=== PATIENT | female | born 1970 | race Caucasian/White ===

== ENCOUNTER 2024-03-19 20:21 | Emergency (ER) | payer OTHER, SELFPAY ==
--- NOTE | 2024-03-19 | ECG_ITS ---
Test Reason : CHEST PAIN Blood Pressure : / mmHG Vent. Rate : 088 BPM Atrial Rate : 088 BPM P-R Int : 206 ms QRS Dur : 086 ms QT Int : 396 ms P-R-T Axes : 020 -26 012 degrees QTc Int : 479 ms Normal sinus rhythm Low voltage QRS Borderline ECG No previous ECGs available Referred By: Generic ED Physician Electronically Signed By:Phong Pugh
--- NOTE | ~2024-03-19 | CT_ITS ---
EXAMINATION: CT ABDOMEN AND PELVIS WITH CONTRAST CLINICAL INFORMATION: Upper abdominal pain and tenderness with mildly elevated alkaline phosphatase and elevated lipase COMPARISON: Chest radiograph 03/19/2024 TECHNIQUE: Multidetector volumetric images were obtained from the superior aspect of the liver through the pubic symphysis following administration 85 mL of Omnipaque 350 intravenous contrast. Sagittal and coronal reformatted images were obtained on the technologist's workstation. Oral contrast: No This CT examination was performed using dose optimization techniques as appropriate, variously including the following: *Automated exposure control *Adjustment of mA and/or kV according to patient size (this includes techniques or standardized protocols for targeted exams where dose is matched to indication/reason for exam; i.e. extremities or head) *Use of iterative reconstruction technique DLP: 794 mGy-cm FINDINGS: LUNG BASES: The visualized lung bases are unremarkable. LIVER, GALLBLADDER, AND BILIARY TREE: The liver is enlarged at 20.6 cm in greatest cephalocaudad dimension with decreased attenuation consistent with hepatic steatosis. Some minimal fatty sparing is present adjacent to the gallbladder. No concerning focal hepatic lesion or biliary ductal dilatation is present. The gallbladder is contracted but otherwise unremarkable with no evidence of radiopaque gallstones, gallbladder wall thickening, or obvious pericholecystic inflammatory changes. PANCREAS: No evidence of pancreatitis. No masses, pancreatic inflammatory change, calcifications or ductal dilatation. SPLEEN: Spleen is enlarged at 13.5 cm. ADRENAL GLANDS: Unremarkable. KIDNEYS AND URETERS: The kidneys are normal in size, shape, and attenuation. No hydronephrosis, hydroureter, or calculi seen. No perinephric stranding. A benign 0.8 cm right-sided Bosniak class I renal cyst is noted which requires no additional imaging or follow up. No solid renal masses are seen. BLADDER: Unremarkable. GASTROINTESTINAL TRACT: The small and large bowel are unremarkable. The appendix is not seen but there is no evidence of appendicitis evidence of appendicitis. ABDOMINAL WALL: No significant hernia is appreciated. LYMPH NODES: Normal. VASCULAR: Unremarkable. PELVIC VISCERA: The uterus and adnexa are unremarkable. OSSEOUS STRUCTURES: Unremarkable. CT/CT abdomen pelvis w IV con IMPRESSION: 1. A cause for the patient's upper abdominal pain and tenderness has not been found. 2. Incidental note made of an enlarged fatty liver and mild splenomegaly. Fleischner guidelines were followed.
--- NOTE | ~2024-03-19 | XR_ITS ---
EXAMINATION: XR CHEST CLINICAL INFORMATION: Chest pain. Shortness of breath. COMPARISON: None available. TECHNIQUE: Frontal view of the chest was obtained. FINDINGS: Hypoinflation of the lungs. The lungs are clear. The cardiomediastinal silhouette is normal in size. There is no pleural effusion or pneumothorax. No acute osseous abnormality. XR/XR chest 1V IMPRESSION: No acute cardiopulmonary findings.
[2024-03-19 20:23] VITALS: BP 117/68; PULSE 87; O2SAT 98
[2024-03-19 20:29] VITALS: BP 115/61; PULSE 87; RESP 16; TEMP 36.9; O2SAT 95; BMI 43.3
--- NOTE | 2024-03-19 20:53 | PC.NURSE ---
Patient DEJON from [facility] on [address], already in hospital attire, only brought book with her and glasses, 1:[address] for patient safety.
[2024-03-19 21:04] LABS: MANUAL DIFF FLAG NO
[2024-03-19 21:07] LABS: Basophils Percent Auto 0.3 % (0-2); Eosinophils Absolute Auto 0.1 X10*3/uL (0.0-0.4); Eosinophils Percent Auto 1.4 % (0-4); Hematocrit 37.7 % (37.0-47.0); Hemoglobin 11.4 g/dl (12.0-16.0); Imm Gran Abs Auto 0.06 X10*3/uL (0.00-0.03); Imm Gran Pct Auto 0.6 % (0.0-0.4); Lymphocytes Percent Auto 20.5 % (20-40); Mean Corpuscular HGB Conc 30.2 g/dl (31.0-35.0); Mean Corpuscular Hemoglobin 24.8 pg (27.0-33.0); Monocytes Absolute Auto 0.8 X10*3/uL (0.1-1.2); Monocytes Percent Auto 7.8 % (2-11); Neutrophils Absolute Auto 6.7 x10*3/uL (2.0-8.3); Neutrophils Percent Auto 69.4 % (45-73); Platelet Count 175 X10*3/uL (160-400); Red Cell Distribution Width 18.6 % (11.0-16.0); White Blood Count 9.7 X10*3/uL (4.8-10.8)
--- NOTE | 2024-03-19 21:18 | ED.CHESTPAIN ---
HPI - Chest Pain General Chief Complaint: Chest Pain Stated Complaint: FROM [facility], CHEST PAIN,SOB,DIZZY,NAUSEA Time Seen by Provider: 03/19/24 21:18 History of Present Illness ED Provider: Kevyn ROJAS narrative: The patient is a 53-year-old female who is currently a psychiatric inpatient at [facility]. She has been there for about a week. She has been admitted there from the emergency room at [facility]. She is from [place], [place]. The patient says that this afternoon at around 17:30 left-sided chest discomfort that is worse with breathing. She has also had some pain in her right shoulder. She has had some nausea. She has felt somewhat short of breath. No pain or swelling in her legs. No fever, sweats, chills. No cough or sputum. Related Data Allergies Allergy/AdvReac Type Severity Reaction Status Date / Time Penicillins Allergy Unknown Verified 03/19/24 20:31 sulfamethoxazole Allergy Unknown Verified 03/19/24 20:31 [From Bactrim] tomato Allergy Unknown Verified 03/19/24 20:31 trimethoprim [From Bactrim] Allergy Unknown Verified 03/19/24 20:31 Review of Systems Review of Systems: Yes all other systems are reviewed and are negative [facility] Social History Social History Smoked in Last 30 Days: No Use of substances other than those prescribed or required for medical reasons: No Advance Directives: No Advance Directives Information Provided: No Do you have a plan to hurt others: No Plan Physical Exam Vital Signs: Vital Signs: Last Vital Signs Temp 98.1 F 03/20/24 01:07 Pulse 79 03/20/24 01:07 Resp 17 03/20/24 01:07 BP 92/55 L 03/20/24 01:07 Pulse Ox 95 03/20/24 01:07 O2 Del Method Room Air 03/20/24 01:07 BMI result Body Mass Index 43.3 Const: Other: The patient is awake, alert, pleasant, cooperative. She is a chronically ill-appearing 53-year-old who looks much older than her age. She has a BMI of 43. HEENT: Other: Face is symmetrical. Mucous membranes moist. Eyes: Other: Pupils are round equal, conjunctivae are clear Neck: Other: Moving her neck easily Chest: Other: No obvious chest wall tenderness Resp: Effort & Inspection: normal respiratory effort Auscultation: clear to auscultation bilaterally Cardio: Rate: regular rate Rhythm: regular rhythm Heart sounds: S1 normal heart sound present and S2 normal heart sound present GI: Other: Abdomen is protuberant and large. Abdomen is nontender. Skin: Other: Skin is pale and dry Neuro: Other: The patient is awake and alert. Cranial nerves are grossly intact. She moves her extremities symmetrically. She seems somewhat generally deconditioned but does not seem to have any focal neurological deficits. Extrem: Other: No calf swelling or tenderness. No edema. No asymmetry. Medications Administered Discontinued Medications Generic Name Dose Route Start Last Admin Trade Name Freq PRN Reason Stop Dose Admin Albuterol/Ipratropium 3 ml 03/19/24 21:42 03/19/24 21:51 Albuterol/Iprat 2.5/0.5mg 3 Ml Ampul.Neb INHALE 03/19/24 21:43 3 ml ONCE ONE Administration Sodium Chloride 1,000 mls @ 999 mls/hr 03/19/24 23:15 03/20/24 00:46 Ns IV 03/20/24 00:15 Infused .Q1H1M LEE Infusion Iohexol 85 ml 03/19/24 23:46 03/19/24 23:46 Iohexol 350 Mg/Ml 100 Ml Infus..Btl IV 03/19/24 23:47 85 ml ONCE ONE Administration Ketorolac Tromethamine 10 mg 03/20/24 00:50 03/20/24 00:56 Ketorolac Tromethamine 15 Mg/Ml Vial IVPUSH 03/20/24 00:51 10 mg ONCE ONE Administration Medical Decision Making Medical Decision Making [facility] Narrative: The patient presented with what seemed to be primarily a complaint of left-sided chest pain. She seemed to be very certain that this was a pleuritic type of chest pain. Her chest x-ray is clear. Her EKG is unremarkable. She has no symptoms of pneumonia. She has a normal D-dimer and 2- troponins. BNP is normal. Her white count is normal and her differential is normal. Initially I did not think she had any significant abdominal tenderness but I re-examined her after her labs were available. At that point she seemed to have some upper abdominal tenderness. We obtained a CT scan of the abdomen and pelvis with IV contrast to evaluate for possible pancreatitis or cholecystitis. The CT was essentially negative. Ultimately the patient's workup seems negative. She does not appear ill in the emergency department. She was given a dose of ketorolac. I think she may return to [facility]. Lab Data 03/19/24 20:57 03/19/24 20:57 Labs: Lab Results 03/19/24 03/19/24 Range/Units 20:57 22:17 WBC 9.7 (4.8-10.8) X10*3/uL RBC 4.60 (4.20-5.50) X10*6/uL Hgb 11.4 L (12.0-16.0) g/dl Hct 37.7 (37.0-47.0) % MCV 82.0 (80.0-98.0) fL MCH 24.8 L (27.0-33.0) pg MCHC 30.2 L (31.0-35.0) g/dl RDW 18.6 H (11.0-16.0) % Plt Count 175 (160-400) X10*3/uL MPV 10.0 (9.4-12.3) fL Immature Gran % (Auto) 0.6 H (0.0-0.4) % Neut % (Auto) 69.4 (45-73) % Lymph % (Auto) 20.5 (20-40) % Moffat % (Auto) 7.8 (2-11) % Eos % (Auto) 1.4 (0-4) % Baso % (Auto) 0.3 (0-2) % Lymph # (Auto) 2.0 (1.2-4.9) X10*3/uL Moffat # (Auto) 0.8 (0.1-1.2) X10*3/uL Eos # (Auto) 0.1 (0.0-0.4) X10*3/uL Baso # (Auto) 0.0 (0.0-0.2) X10*3/uL Abs Immat Gran (auto) 0.06 H (0.00-0.03) X10*3/uL Absolute Neuts (auto) 6.7 (2.0-8.3) x10*3/uL Absolute Nucleated RBC 0.000 (0.0-0.012) X10*3/uL Nucleated RBC % (auto) 0.0 (0.0-0.2) /100WBC D-Dimer High Sensitivty 200 NG/ML Sodium 142 (135-145) mmol/L Potassium 4.5 (3.3-5.1) mmol/L Chloride 104 (96-108) mmol/L Carbon Dioxide 27 (22-29) mmol/L Anion Gap 16 (12-20) BUN 15 (9-16) mg/dL Creatinine 0.72 (0.5-1.4) mg/dL Estim Creat Clear Calc 86.7 Estimated GFR > 60 Random Glucose 196 H (60-115) mg/dL Calcium 9.4 (8.4-10.2) mg/dL Total Bilirubin 0.2 (0.0-1.0) mg/dL Direct Bilirubin < 0.2 (0.0-0.5) mg/dL AST 29 (5-31) U/L ALT 46 H (0-31) U/L Alkaline Phosphatase 124 H (39-117) U/L Troponin I High Sens < 2.7 < 2.7 (<3.5-17.0) ng/L B-Natriuretic Peptide < 10 (<100) pg/mL Total Protein 7.5 (6.5-8.0) g/dL Albumin 3.8 (3.5-5.0) g/dL Lipase 143 H (8-78) U/L Independent Interpretation I performed an independent interpretation of an: EKG Interpretation: EKG at 20:29 shows normal sinus rhythm at 80 beats per minute. It is an unremarkable EKG. Discharge Plan Discharge Clinical Impression: Chest pain Patient Disposition: Home, Self-Care Additional Instructions: The testing that you have had in the emergency room is ultimately quite reassuring. There is no sign of a heart attack. There is no sign of a blood clot. There is no sign of pneumonia. A CAT scan of your abdomen does not show any problems with your pancreas or your gallbladder. The pain may be coming from the muscles, bones, or cartilage of your chest wall. I would recommend ibuprofen and acetaminophen as needed for pain. Please follow up with your regular doctor when you can. Return to the emergency room if significantly worse. Referrals: [facility] [Outside] Print Language: Belarusian
[2024-03-19 21:20] LABS: Alanine Aminotransferase 46 U/L (0-31); Albumin Level 3.8 g/dL (3.5-5.0); Alkaline Phosphatase 124 U/L (39-117); Anion Gap 16 (12-20); Aspartate Amino Transferase 29 U/L (5-31); Bilirubin Direct < 0.2 mg/dL (0.0-0.5); Bilirubin Total 0.2 mg/dL (0.0-1.0); Blood Urea Nitrogen 15 mg/dL (9-16); Calcium 9.4 mg/dL (8.4-10.2); Carbon Dioxide 27 mmol/L (22-29); Chloride 104 mmol/L (96-108); Creatinine Clr Calc Pharmacy 86.7; Estimated Glomerular Filt Rate > 60; Glucose Random 196 mg/dL (60-115); Lipase 143 U/L (8-78); Potassium 4.5 mmol/L (3.3-5.1); Sodium 142 mmol/L (135-145); Total Protein 7.5 g/dL (6.5-8.0)
[2024-03-19 21:37] LABS: Troponin-I High Sensitivity < 2.7 ng/L (<3.5-17.0)
--- NOTE | 2024-03-19 21:42 | PC.NURSE ---
Patient difficult stick, does not want to be stuck more than once more, provider okay'd 1 stick at 2200 for ddimer and 2nd trop.
[2024-03-19 21:51] VITALS: PULSE 91; RESP 18; O2SAT 96
[2024-03-19] MEDS: Albuterol/Iprat 2.5/0.5MG 3 ML AMPUL.NEB INHALE (21:51)
[2024-03-19 22:00] VITALS: BP 112/68; PULSE 93; RESP 18; TEMP 36.9; O2SAT 97
[2024-03-19 22:02] LABS: B Type Natriuretic Peptide < 10 pg/mL (<100)
[2024-03-19 22:48] LABS: D Dimer High Sensitivity 200 NG/ML
[2024-03-19 22:50] LABS: Troponin-I High Sensitivity < 2.7 ng/L (<3.5-17.0)
[2024-03-19 23:25] VITALS: BP 101/53; PULSE 92; RESP 14; TEMP 36.6; O2SAT 95
[2024-03-19] MEDS: 0.9 % Sodium Chloride 1,000 ML 999 ML IV (23:45)
[2024-03-19] MEDS: iohexoL 350 MG/ML 100 ML INFUS..BTL 85 ML IV (23:46)
[2024-03-20] MEDS: Ketorolac Tromethamine 15 MG/ML VIAL 10 MG IVPUSH (00:56)
[2024-03-20 01:07] VITALS: BP 92/55; PULSE 79; RESP 17; TEMP 36.7; O2SAT 95
--- NOTE | 2024-03-20 01:16 | PC.NURSE ---
3x attempt to call report to [place] no answer. attempted all numbers on pts paperwork.
[2024-03-20 04:32] VITALS: BP 100/76; PULSE 72; RESP 16; TEMP 36.8; O2SAT 97
== END 2024-03-20 04:33 | disposition home or self-care (01) ==
PROVIDERS: Emergency Provider Emergency Medicine
DX: R07.9 Chest pain, unspecified (principal); R06.02 Shortness of breath; M25.511 Pain in right shoulder; R11.0 Nausea
CPT/HCPCS: 36415; 71045; 74177; 80048; 80076; 83690; 83880; 84484; 85025; 85379; 93005; 94640; 96361; 96374; 99284; 99285; J1885; Q9967

== ENCOUNTER → 2024-03-19 20:29 | Outpatient (BNV) | payer OTHER, SELFPAY | PROVIDERS: Emergency Provider Emergency Medicine; Visit Provider Internal Medicine Cardiovascular Disease | DX: R07.9 Chest pain, unspecified (principal) | CPT/HCPCS: 93010 ==

== ENCOUNTER 2024-03-26 20:39 | Emergency (ER) | payer OTHER, SELFPAY ==
--- NOTE | 2024-03-26 | ECG_ITS ---
Test Reason : CHEST PAIN Blood Pressure : / mmHG Vent. Rate : 078 BPM Atrial Rate : 078 BPM P-R Int : 202 ms QRS Dur : 088 ms QT Int : 422 ms P-R-T Axes : 033 -34 019 degrees QTc Int : 481 ms Normal sinus rhythm Left axis deviation Low voltage QRS Prolonged QT Abnormal ECG When compared with ECG of 19-MAR-2024 20:29, No significant change was found Referred By: Generic ED Physician Electronically Signed By:ALFREDO SALAZAR MD
[2024-03-26 21:19] VITALS: BP 113/72; BP 117/63; PULSE 79; PULSE 84; RESP 20; TEMP 36.5; O2SAT 96; O2SAT 98; BMI 45.7
[2024-03-26 21:30] LABS: Hematocrit 39.2 % (37.0-47.0); Hemoglobin 12.1 g/dl (12.0-16.0); Mean Corpuscular HGB Conc 30.9 g/dl (31.0-35.0); Mean Corpuscular Hemoglobin 25.2 pg (27.0-33.0); Mean Corpuscular Volume 81.7 fL (80.0-98.0); Mean Platelet Volume 9.2 fL (9.4-12.3); Platelet Count 186 X10*3/uL (160-400); Red Cell Distribution Width 18.6 % (11.0-16.0); White Blood Count 8.6 X10*3/uL (4.8-10.8)
[2024-03-26 21:35] LABS: INTERNATIONAL NORM RATIO 0.9 (0.9-1.1); Prothrombin Time 11.4 SEC (11.1-13.3)
[2024-03-26 21:59] LABS: Alanine Aminotransferase 42 U/L (0-31); Albumin Level 3.7 g/dL (3.5-5.0); Alkaline Phosphatase 116 U/L (39-117); Anion Gap 15 (12-20); Aspartate Amino Transferase 28 U/L (5-31); Bilirubin Total 0.2 mg/dL (0.0-1.0); Blood Urea Nitrogen 18 mg/dL (9-16); Calcium 9.3 mg/dL (8.4-10.2); Carbon Dioxide 25 mmol/L (22-29); Chloride 102 mmol/L (96-108); Creatinine Clr Calc Pharmacy 81.7; Estimated Glomerular Filt Rate > 60; Glucose Random 216 mg/dL (60-115); Lipase 154 U/L (8-78); Potassium 4.2 mmol/L (3.3-5.1); Sodium 138 mmol/L (135-145); Total Protein 7.1 g/dL (6.5-8.0); Troponin-I High Sensitivity < 2.7 ng/L (<3.5-17.0)
--- NOTE | 2024-03-26 23:21 | ED_ITS ---
HPI - Chest Pain General Chief Complaint: Chest Pain Stated Complaint: chest pain Time Seen by Provider: 03/26/24 23:09 Source: patient Mode of arrival: ambulatory Limitations: no limitations History of Present Illness ED Provider: orestes ROJAS narrative: Patient with history of depression hypotension diabetes comes from [facility] on [address] for diffuse chest pain abdominal pain for last few days got worse today patient received ibuprofen and Ativan prior to arrival was seen here on 03/[address] scan was negative patient felt that she passed stone in the urine chest pain is diffuse bilateral and abdominal pain is also diffuse bilateral with no nausea vomiting or diarrhea Related Data Allergies Allergy/AdvReac Type Severity Reaction Status Date / Time Penicillins Allergy Unknown Verified 03/26/24 21:25 sulfamethoxazole Allergy Unknown Verified 03/26/24 21:25 [From Bactrim] tomato Allergy Unknown Verified 03/26/24 21:25 trimethoprim [From Bactrim] Allergy Unknown Verified 03/26/24 21:25 Review of Systems 2 Review of Systems: Yes all other systems are reviewed and are negative PMFSH Past Medical History Medical History Anxiety Hyperlipidemia Hypertension Diabetes mellitus type 2 in obese Major depressive disorder Social History Social History Advance Directives: No Advance Directives Information Provided: No Do you have a plan to hurt others: No Plan Physical Exam 2 Vital Signs: Vital Signs: Last Vital Signs Temp 98.7 F 03/27/24 00:00 Pulse 78 03/27/24 00:00 Resp 14 03/27/24 00:00 BP 100/63 03/27/24 00:00 Pulse Ox 96 03/27/24 00:00 O2 Del Method Room Air 03/27/24 00:00 BMI result Body Mass Index 45.7 Appearance: Alert. Oriented X3. No acute distress. Obese ENT: Pharynx normal. Oral Mucosa moist Neck: Normal inspection. Neck supple. CVS: Normal heart rate and rhythm. Pulses normal. Respiratory: No respiratory distress. Equal air entry bilateral, no wheezing/rales/rhonchi Abdomen: Soft and mild diffuse tenderness no rebound tenderness or guarding. Bowel sounds are present, no mass palpable, no CVA tenderness Skin: Skin warm and dry. Normal skin color. Normal skin turgor. Extremities: No lower extremity edema. No calf tenderness Neuro: Oriented X 3. No motor deficit. Medical Decision Making Medical Decision Making [facility] Narrative: Patient has atypical chest pain abdominal pain with recent evaluation on 03/19 with workup negative today also labs are stable troponin negative EKG without ischemic changes pain is atypical patient asking for food after arrival in the ER will discharge patient back to care home Differential Diagnosis Differential Diagnoses: The differential diagnosis associated with the presentation includes Atypical chest pain/anxiety/UTI Lab Data [facility] Lab Attestation statement: I reviewed the patient's lab results. 03/26/24 21:24 03/26/24 21:24 Labs: Lab Results 03/26/24 03/26/24 Range/Units 21:24 23:36 WBC 8.6 (4.8-10.8) X10*3/uL RBC 4.80 (4.20-5.50) X10*6/uL Hgb 12.1 (12.0-16.0) g/dl Hct 39.2 (37.0-47.0) % MCV 81.7 (80.0-98.0) fL MCH 25.2 L (27.0-33.0) pg MCHC 30.9 L (31.0-35.0) g/dl RDW 18.6 H (11.0-16.0) % Plt Count 186 (160-400) X10*3/uL MPV 9.2 L (9.4-12.3) fL Absolute Nucleated RBC 0.000 (0.0-0.012) X10*3/uL Nucleated RBC % (auto) 0.0 (0.0-0.2) /100WBC PT 11.4 (11.1-13.3) SEC INR 0.9 (0.9-1.1) Sodium 138 (135-145) mmol/L Potassium 4.2 (3.3-5.1) mmol/L Chloride 102 (96-108) mmol/L Carbon Dioxide 25 (22-29) mmol/L Anion Gap 15 (12-20) BUN 18 H (9-16) mg/dL Creatinine 0.79 (0.5-1.4) mg/dL Estim Creat Clear Calc 81.7 Estimated GFR > 60 Random Glucose 216 H (60-115) mg/dL Calcium 9.3 (8.4-10.2) mg/dL Magnesium 2.0 (1.6-2.6) mg/dL Total Bilirubin 0.2 (0.0-1.0) mg/dL AST 28 (5-31) U/L ALT 42 H (0-31) U/L Alkaline Phosphatase 116 (39-117) U/L Troponin I High Sens < 2.7 (<3.5-17.0) ng/L Total Protein 7.1 (6.5-8.0) g/dL Albumin 3.7 (3.5-5.0) g/dL Lipase 154 H (8-78) U/L Urine Color Yellow Urine Appearance Clear Urine pH 5.5 (5.0-9.0) Ur Specific [place] >= 1.030 H (1.005-1.025) Urine Protein Negative (Neg-Trace) mg/dL Urine Glucose (UA) >=1000 H (Negative) mg/dL Urine Ketones Negative (Negative) mg/dL Urine Blood Negative (Negative) Urine Nitrite Negative (Negative) Ur Leukocyte Esterase Negative (Negative) Independent Interpretation I performed an independent interpretation of an: EKG Interpretation: Normal sinus rhythm heart rate 78 beats per minute normal interval QTC [address] T wave changes no acute ischemia Discharge Plan Discharge Clinical Impression: Atypical chest pain, Abdominal pain, chronic, generalized Patient Disposition: Xfer [facility] Transfer Details: Blood workup negative for acute coronary disease urine is also negative labs are stable Instructions: Noncardiac Chest Pain (ED), Chronic Abdominal Pain (ED) Additional Instructions: Your workup is negative for any acute coronary event Urine also negative Continue medications and follow up with your PCP Print Language: Upper Sorbian
[2024-03-26 23:42] LABS: Appearance Urine Clear; Color Urine Yellow; Glucose Urine UA >=1000 mg/dL (Negative); Leukocyte Esterase Urine Negative (Negative); Nitrite Urine Negative (Negative); PH 5.5 (5.0-9.0); Specific Gravity - Urine >= 1.030 (1.005-1.025); UMIC TRIGGER UACC YES; Urine Blood Negative (Negative); Urine Ketones Negative (Negative); Urine Protein Negative (Neg-Trace)
[2024-03-27] VITALS: BP 100/63; PULSE 78; RESP 14; TEMP 37.1; O2SAT 96
[2024-03-27 00:33] LABS: Bacteria Urine 3+ (None Seen); Hyaline Casts Urine 0-2 /LPF (0-2); UACC Culture Trigger YES
[2024-03-27 03:43] VITALS: BP 109/74; PULSE 79; RESP 20; TEMP 36.6; O2SAT 97
== END 2024-03-27 02:50 | disposition skilled nursing facility (03) ==
PROVIDERS: Emergency Provider Internal Medicine
DX: R07.89 Other chest pain (principal); R10.13 Epigastric pain; Z79.899 Other long term (current) drug therapy
CPT/HCPCS: 36415; 80053; 81001; 83690; 83735; 84484; 85027; 85610; 87086; 93005; 99284; 99285

== ENCOUNTER → 2024-03-26 20:52 | Outpatient (BNV) | payer OTHER, SELFPAY | PROVIDERS: Emergency Provider Internal Medicine; Visit Provider Internal Medicine Cardiovascular Disease | DX: R07.9 Chest pain, unspecified (principal) | CPT/HCPCS: 93010 ==